=== PATIENT | female | born 1950 | race Caucasian/White ===

== ENCOUNTER 2018-03-28 19:15 | Observation (INO) | payer MEDICARE ==
[~2018-03-28] VITALS: Ht 157.5 cm; Wt 111.6 kg
[2018-03-28 19:28] VITALS: BP 203/67
[2018-03-28] MEDS ORDERED: LISINOPRIL10 MG PO (19:34)
[2018-03-28] MEDS ORDERED: CELEXA20 MG PO (19:35)
[2018-03-28] MEDS ORDERED: MIRAPEX0.5 MG PO (19:37)
[2018-03-28] MEDS ORDERED: SPIRIVA PO (19:37)
[2018-03-28] MEDS ORDERED: VENTOLIN HFA 1818 GM INH (19:37)
[2018-03-28] MEDS ORDERED: ZYRTEC10 M5 PO (19:38)
[2018-03-28] MEDS ORDERED: CARVEDILOL12.5 MG PO (19:39)
[2018-03-28 19:43] LABS: ABSOLUTE BASOPHILS 0.1 thou/uL (0.0-0.2); ABSOLUTE EOSINOPHILS 0.3 thou/uL (0.0-0.7); ABSOLUTE LYMPHOCYTES 1.9 thou/uL (0.8-5.3); ABSOLUTE MONOCYTES 1.2 thou/uL (0.0-1.2); ABSOLUTE NEUTROPHILS 5.2 thou/uL (1.6-8.1); BASOPHILS 0.8 %; EOSINOPHILS 3.3 %; HEMATOCRIT 39.2 % (37.0-47.0); HEMOGLOBIN 13.3 gm/dL (12.0-15.0); LYMPHOCYTES 22.2 %; MCH 29.4 pg (26.0-34.0); MCV 86.4 fL (80.0-100.0); MONOCYTES 13.7 %; MPV 8.1 fl. (7.2-11.1); NUCLEATED RBCS 0 /100WBC; PLATELET COUNT* 214 thou/uL (150-400); RBC 4.53 mil/uL (4.20-5.00); RDW-CV 13.8 % (10.5-14.5); WBC 8.6 thou/uL (4.0-11.0)
[2018-03-28 19:51] LABS: ANION GAP 7 mmol/L (7-16); BUN 16 mg/dL (7-18); CHLORIDE 104 mmol/L (98-107); CO2 28 mmol/L (21-32); CREATININE 0.4 mg/dL (0.6-1.3); GLUCOSE 110 mg/dL (70-99); POTASSIUM 3.6 mmol/L (3.5-5.1); SODIUM 139 mmol/L (136-145)
[2018-03-28 19:57] LABS: ALBUMIN 3.2 g/dL (3.4-5.0); ALKALINE PHOSPHATASE 68 U/L (46-116); SGOT 22 U/L (15-37); SGPT 36 U/L (30-65); TOTAL BILIRUBIN 0.4 mg/dL (<0.1-1.0); TOTAL PROTEIN 6.7 g/dL (6.4-8.2); TROPONIN-I LEVEL <0.06 ng/mL (<0.06)
[2018-03-29 00:51] LABS: URINE BILIRUBIN NEGATIVE (Negative); URINE BLOOD NEGATIVE (Negative); URINE CLARITY CLEAR; URINE COLOR YELLOW; URINE GLUCOSE-RANDOM NEGATIVE (Negative); URINE KETONES NEGATIVE (Negative); URINE LEUKOCYTES-REFLEX NEGATIVE (Negative); URINE PROTEIN 2+ (Negative); URINE UROBILINOGEN 0.2 E.U./dl (0.2-1.0)
[2018-03-29 00:55] LABS: URINE NITRITE-REFLEX POSITIVE (Negative)
[2018-03-29 01:08] LABS: BACTERIA-REFLEX >30 Many /HPF (None Seen); CASTS None Seen /LPF (None Seen); CRYSTALS None Seen /LPF (None Seen); SQUAMOUS 4-10 Moderate /LPF (0-3); URINE RBC 0-2 Rare /HPF (0-2); URINE WBC-REFLEX 6-15 Few /HPF (0-5)
[2018-03-29 01:45] VITALS: BP 145/53
[2018-03-29 02:01] VITALS: BP 153/48
[2018-03-29 08:00] VITALS: BP 152/53
[2018-03-29] MEDS ORDERED: ASPIR 8181 MG PO (10:03)
--- NOTE | 2018-03-29 10:18 | EKG ---
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 : 1950 Requested By: Heather Urbano Order Number: [id number] MD: Vipin Miller Measurements Intervals [place] Rate: 67 P: 29 NC: 181 QRS: -45 QRSD: 114 T: 44 QT: 442 QTc: 467 Interpretive Statements Sinus rhythm Left ventricular hypertrophy with repolarization changes left axis Anterior Q waves, possibly due to LVH No previous ECG available for comparison Electronically Signed On 03-29-2018 10:18:32 CDT by Vipin Miller [email or web address] <ELECTRONICALLY SIGNED> By: Vipin Miller MD, [facility] 03/29/188 51 51 Vipin Miller MD, [facility] /EPI
[2018-03-29 10:58] VITALS: BP 152/53
== END 2018-03-29 11:56 | disposition home or self-care (01) ==
LOC: M.ERS 19:15 → M.2W 03-29 00:02 → M.TBA-ER 03-29 00:02 → M.2W 03-29 00:02
PROVIDERS: Emergency Medicine; ADMIT Internal Medicine
DX: I16.0 Hypertensive urgency (principal); R51 Headache; R82.90 Unspecified abnormal findings in urine; E78.00 Pure hypercholesterolemia, unspecified; E66.9 Obesity, unspecified; R53.81 Other malaise; Z98.890 Other specified postprocedural states; Z90.710 Acquired absence of both cervix and uterus; Z87.891 Personal history of nicotine dependence

== ENCOUNTER 2021-04-10 19:58 | Inpatient (IN) | payer MEDICARE ==
[~2021-04-10] VITALS: Ht 157.5 cm; Wt 121.3 kg
[~2021-04-10 19:58] MED LIST: ASPIR 8181 MG PO; CARVEDILOL12.5 MG PO; CELEXA20 MG PO; LISINOPRIL10 MG PO; MIRAPEX0.5 MG PO; SPIRIVA PO; VENTOLIN HFA 1818 GM INH; ZYRTEC10 M5 PO
[2021-04-10 20:08] VITALS: BP 120/99
[2021-04-10] MEDS ORDERED: NORVASC10 MG PO (20:16)
[2021-04-10] MEDS ORDERED: OMEPRAZOLE40 MG PO (20:17)
[2021-04-10] MEDS ORDERED: CELEXA 20 MG TA20 MG PO (20:18)
[2021-04-10] MEDS ORDERED: NEURONTIN 300M300 M2 PO (20:19)
[2021-04-10] MEDS ORDERED: BUSPIRONE HCL10 MG PO (20:19)
[2021-04-10] MEDS ORDERED: HYDROCHLOROTHIA25 M1 PO (20:20)
[2021-04-10] MEDS ORDERED: PROBIOTIC1 EAC7 PO (20:20)
[2021-04-10] MEDS ORDERED: LORATIDINE 10 M10 M1 PO (20:21)
[2021-04-10] MEDS ORDERED: LIPITOR40 MG PO (20:21)
[2021-04-10] MEDS ORDERED: DULERA 100 MCG/13 GM INH (20:23)
[2021-04-10] MEDS ORDERED: FLONASE 0.05%50 MCG NARES (20:23)
[2021-04-10] MEDS ORDERED: D3-501250 MCG PO (20:24)
[2021-04-10] MEDS ORDERED: ALBUTEROL2.5 MG/31 INH (20:24)
[2021-04-10] MEDS ORDERED: PREMARIN30 GM TOP (20:25)
[2021-04-10] MEDS ORDERED: UNGUENTINE OINT28 GM TOP (20:25)
[2021-04-10 20:56] LABS: ABSOLUTE BASOPHILS 0.1 thou/uL (0.0-0.2); ABSOLUTE EOSINOPHILS 0.2 thou/uL (0.0-0.7); ABSOLUTE LYMPHOCYTES 1.3 thou/uL (0.8-5.3); ABSOLUTE MONOCYTES 1.3 thou/uL (0.0-1.2); ABSOLUTE NEUTROPHILS 9.3 thou/uL (1.6-8.1); BASOPHILS 0.7 %; EOSINOPHILS 1.8 %; HEMATOCRIT 34.5 % (37.0-47.0); HEMOGLOBIN 11.7 gm/dL (12.0-15.0); LYMPHOCYTES 10.8 %; MCH 27.6 pg (26.0-34.0); MCHC 33.9 g/dL (28.0-37.0); MCV 81.3 fL (80.0-100.0); MONOCYTES 10.9 %; MPV 8.2 fl. (7.2-11.1); NUCLEATED RBCS 0 /100WBC; PLATELET COUNT* 261 thou/uL (150-400); POLYS 75.8 %; RBC 4.25 mil/uL (4.20-5.00); RDW-CV 14.3 % (10.5-14.5); WBC 12.3 thou/uL (4.0-11.0)
[2021-04-10 21:06] LABS: CREATININE 0.7 mg/dL (0.6-1.3); POTASSIUM 3.6 mmol/L (3.5-5.1)
[2021-04-10 21:16] LABS: ALBUMIN 2.9 g/dL (3.4-5.0); TOTAL BILIRUBIN 0.4 mg/dL (<0.1-1.0); TOTAL PROTEIN 6.5 g/dL (6.4-8.2)
[2021-04-10 21:38] LABS: URINE BILIRUBIN NEGATIVE (Negative); URINE BLOOD TRACE (Negative); URINE CLARITY HAZY; URINE COLOR YELLOW; URINE GLUCOSE-RANDOM NEGATIVE (Negative); URINE KETONES 1+ (Negative); URINE LEUKOCYTES-REFLEX TRACE (Negative); URINE NITRITE-REFLEX POSITIVE (Negative); URINE PROTEIN 2+ (Negative); URINE SPECIFIC GRAVITY 1.025 (1.005-1.030); URINE UROBILINOGEN 0.2 E.U./dl (0.2-1.0)
[2021-04-10 21:51] LABS: BACTERIA-REFLEX >30 Many /HPF (None Seen); SQUAMOUS 4-10 Moderate /LPF (0-3); URINE RBC None Seen /HPF (0-2); URINE WBC-REFLEX 6-15 Few /HPF (0-5)
[2021-04-10 21:52] LABS: CASTS None Seen /LPF (None Seen); CRYSTALS None Seen /LPF (None Seen)
[2021-04-11] VITALS (7 sets, daily range): BP systolic 121–181; BP diastolic 55–84
[2021-04-11 00:08] LABS: BE 1.4 mmol/L (-2 to +3); PCO2 43.4 mmHg (35.0-45.0); PO2 101.2 mmHg (75.0-100.0); pH 7.403 (7.340-7.450)
--- NOTE | 2021-04-11 10:56 | EKG ---
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[place] : 1950 Requested By: Heather Urbano Order Number: [id number] MD: Zia Zimmerman Measurements Intervals [place] Rate: 79 P: 45 [place]: 165 QRS: -39 QRSD: 170 T: 120 QT: 438 QTc: 503 Interpretive Statements Sinus rhythm Left bundle branch block Baseline wander in lead(s) V6 Compared to ECG 03/28/2018 19:52:48 Left bundle-branch block now present Left ventricular hypertrophy no longer present Q waves no longer present Electronically Signed On 04-11-2021 10:55:47 CDT by Zia Zimmerman [email or web address] <ELECTRONICALLY SIGNED> By: Zia Zimmerman MD, [facility] 04/11/21 1055 40 40 Zia Zimmerman MD, [facility] /EPI
--- NOTE | 2021-04-11 13:16 | 2DMMODE ---
[place] [address] 2 D/M-MODE ECHOCARDIOGRAM Name: LUCERO MORENO Room: [address] IN .R.#: [id number] Admission: 04/10/21 Attend Phys: Sloan Garcia, Discharge: Date of : 50 Date of Service: 04/11/21 1315 Report #: [id number] THIS REPORT FOR: cc: Karen Glynn Michelle RNP Holkins, John M. MD [facility] ~ APPROVED REPORT Study performed: 04/11/2021 10:33:36 EXAM: Comprehensive 2D, Doppler, and color-flow Echocardiogram Patient Location: In-Patient Room #: [facility] Status: routine BSA: 2.16 HR: 83 bpm BP: 149/55 mmHg Rhythm: NSR Other Information Study Quality: Good Indications Congestive Heart Failure COPD 2D Dimensions IVSd: 12.08 (7-11mm) LVOT Diam: 19.88 (18-24mm) LVDd: 61.98 mm PWd: 10.35 (7-11mm) Ascending Ao: 32.35 (22-36mm) LVDs: 33.50 (25-40mm) Aortic Root: 30.73 mm Volumes Left Atrial Volume (Systole) LA ESV Index: 44.90 mL/m2 Aortic Valve AoV Peak Shemar.: 1.63 m/s AO Peak Gr.: 10.57 mmHg LVOT Max P.71 mmHg AO Mean Gr.: 6.26 mmHg LVOT Mean P.12 mmHg LVOT Max V: 1.39 m/s AO V2 VTI: 33.87 cm LVOT Mean V: 0.95 m/s SATISH (VTI): 2.76 cm2 LVOT V1 VTI: 30.17 [place] [address] 2 D/M-MODE [facility]ARDIOGRAM [facility] Room: [address] IN .R.#: [id number] Admission: 04/10/21 Attend Phys: Sloan Garcia, Discharge: Date of : 50 Date of Service: 04/11/21 1315 Report #: [id number] Mitral Valve E/A Ratio: 0.81 MV Decel. Time: 258.99 ms MV E Max Shemar.: 0.82 m/s MV PHT: 75.11 ms MVA (PHT): 2.93 cm2 TDI E/Lateral E': 10.25 E/Medial E': 11.71 Medial E' Shemar.: 0.07 m/s Lateral E' Shemar.: 0.08 m/s Pulmonary Valve PV Peak Shemar.: 1.31 m/s PV Peak Gr.: 6.91 mmHg Tricuspid Valve RAP Estimate: 5.00 mmHg TR Peak Gr.: 37.75 mmHg RVSP: 42.00 mmHg PA Pressure: 42.00 mmHg Left Ventricle The left ventricle is normal size. There is normal LV segmental wall motion. There is normal left ventricular wall thickness. Left ventricular systolic function is normal. The left ventricular ejection fraction is within the normal range. LVEF is 55-60%. Grade I - abnormal relaxation pattern. Right Ventricle The right ventricle is normal size. The right ventricular systolic function is normal. Atria Left atrium is mildly dilated. The right atrium size is normal. Aortic Valve Mild aortic valve sclerosis. No aortic regurgitation is present. There is no aortic valvular stenosis. Mitral Valve Mild mitral annular calcification. Mild mitral regurgitation. No evidence of mitral valve stenosis. Tricuspid Valve The tricuspid valve is normal in structure. [place] [address] 2 D/M-MODE ECHOCARDIOGRAM Name: LUCERO MORENO Room: [address] IN [facility]#: [id number] Admission: 04/10/21 Attend Phys: Sloan Garcia, Discharge: Date of : 50 Date of Service: 04/11/21 1315 Report #: [id number] regurgitation. Moderate pulmonary hypertension. Pulmonic Valve The pulmonary valve is normal in structure. There is no pulmonic valvular regurgitation. Great Vessels The aortic root is normal in size. IVC is normal in size and collapses >50% with inspiration. Pericardium There is no pericardial effusion. <Conclusion> The left ventricle is normal size. There is normal left ventricular wall thickness. Left ventricular systolic function is normal. The left ventricular ejection fraction is within the normal range. LVEF is 55-60%. Grade I - abnormal relaxation pattern. The right ventricle is normal size. Left atrium is mildly dilated. The right atrium size is normal. Mild aortic valve sclerosis. No aortic regurgitation is present. There is no aortic valvular stenosis. Mild mitral annular calcification. Mild mitral regurgitation. No evidence of mitral valve stenosis. The tricuspid valve is normal in structure. Mild tricuspid regurgitation. Moderate pulmonary hypertension. IVC is normal in size and collapses >50% with inspiration. There is no pericardial effusion. There is normal LV segmental wall motion. <ELECTRONICALLY SIGNED> By: Zia Zimmerman MD, FACC 04/11/21 1315 Zia Zimmerman MD, FACC /INF
[2021-04-11 14:41] LABS: CALCIUM 8.8 mg/dL (8.5-10.1); CREATININE 0.9 mg/dL (0.6-1.3); MAGNESIUM 2.1 mg/dL (1.8-2.4); POTASSIUM 3.8 mmol/L (3.5-5.1)
[2021-04-12] VITALS (7 sets, daily range): BP systolic 134–171; BP diastolic 40–72
[2021-04-12 07:03] LABS: HEMATOCRIT 36.5 % (37.0-47.0); HEMOGLOBIN 12.1 gm/dL (12.0-15.0); MCH 27.2 pg (26.0-34.0); MCHC 33.1 g/dL (28.0-37.0); MCV 82.1 fL (80.0-100.0); MPV 8.1 fl. (7.2-11.1); NUCLEATED RBCS 0 /100WBC; PLATELET COUNT* 294 thou/uL (150-400); RBC 4.45 mil/uL (4.20-5.00); RDW-CV 14.4 % (10.5-14.5); WBC 9.1 thou/uL (4.0-11.0)
[2021-04-12 07:13] LABS: CALCIUM 8.8 mg/dL (8.5-10.1); CREATININE 0.9 mg/dL (0.6-1.3); POTASSIUM 4.1 mmol/L (3.5-5.1)
[2021-04-12 07:51] LABS: ABSOLUTE LYMPHOCYTES 1.1 thou/uL (0.8-5.3); ABSOLUTE MONOCYTES 0.2 thou/uL (0.0-1.2); ABSOLUTE NEUTROPHILS 7.8 thou/uL (1.6-8.1); PLATELET ESTIMATE ADEQUATE
[2021-04-12 07:52] LABS: HYPOCHROMASIA Occasional
[2021-04-13 04:15] VITALS: BP 177/61
[2021-04-13] MEDS ORDERED: NAPROXEN500 MG PO (06:31)
[2021-04-13] MEDS ORDERED: TRAMADOL 50 MG50 MG PO (06:32)
[2021-04-13 06:41] LABS: HEMATOCRIT 36.7 % (37.0-47.0); MCH 27.1 pg (26.0-34.0); MCHC 32.8 g/dL (28.0-37.0); MCV 82.6 fL (80.0-100.0); MPV 8.3 fl. (7.2-11.1); RBC 4.44 mil/uL (4.20-5.00); RDW-CV 14.6 % (10.5-14.5); WBC 12.2 thou/uL (4.0-11.0)
[2021-04-13 07:00] LABS: CALCIUM 8.8 mg/dL (8.5-10.1); CREATININE 1.2 mg/dL (0.6-1.3); POTASSIUM 4.2 mmol/L (3.5-5.1)
[2021-04-13 08:00] VITALS: BP 163/72
[2021-04-13 11:29] VITALS: BP 173/52
[2021-04-13 15:43] VITALS: BP 164/81
[2021-04-13 19:35] VITALS: BP 183/59
[2021-04-14 00:33] VITALS: BP 185/58
[2021-04-14 04:27] LABS: CALCIUM 8.3 mg/dL (8.5-10.1); CREATININE 1.1 mg/dL (0.6-1.3); MAGNESIUM 2.6 mg/dL (1.8-2.4); POTASSIUM 4.1 mmol/L (3.5-5.1)
[2021-04-14 04:31] LABS: ABSOLUTE LYMPHOCYTES 0.8 thou/uL (0.8-5.3); ABSOLUTE MONOCYTES 0.6 thou/uL (0.0-1.2); ABSOLUTE NEUTROPHILS 10.2 thou/uL (1.6-8.1); HEMATOCRIT 35.6 % (37.0-47.0); HEMOGLOBIN 11.9 gm/dL (12.0-15.0); MCH 27.5 pg (26.0-34.0); MCHC 33.3 g/dL (28.0-37.0); MCV 82.4 fL (80.0-100.0); MPV 8.1 fl. (7.2-11.1); NUCLEATED RBCS 0 /100WBC; PLATELET COUNT* 304 thou/uL (150-400); RBC 4.32 mil/uL (4.20-5.00); RDW-CV 14.8 % (10.5-14.5); WBC 11.6 thou/uL (4.0-11.0)
[2021-04-14 04:54] VITALS: BP 163/60
[2021-04-14 12:00] VITALS: BP 166/53
[2021-04-14 16:00] VITALS: BP 158/50
[2021-04-14] MEDS ORDERED: DOXYCYCLINE 10100 MG PO (17:48)
[2021-04-14] MEDS ORDERED: MUPIROCIN22 GM TOP (17:58)
[2021-04-14] MEDS ORDERED: CLOTRIMAZOLE 1%15 G1 TOP (17:58)
[2021-04-14] MEDS ORDERED: PREDNISONE 10 M10 MG PO (18:00)
[2021-04-14 20:00] VITALS: BP 114/75
--- NOTE | 2021-04-14 20:33 | CON ---
[address] [address] CONSULTATION Name: LUCERO MORENO Room: [address] IN M.R.#: [id number] Admission: 04/10/21 Attend Phys: Sloan Garcia MD Discharge: Date of : 50 Report #: [id number] THIS REPORT FOR: cc: Karen Glynn Michelle RNP Pervez, Adeel MD ~ DOC #: [id number] Dickson Vieira MD DATE OF CONSULTATION: 04/11/2021 REQUESTING PHYSICIAN: Dr. Sloan Garcia. INDICATION FOR CONSULTATION: COPD exacerbation. HISTORY OF PRESENT ILLNESS: A 71-year-old female with past medical history includes a history of COPD as well as obstructive sleep apnea. She is on a CPAP at night, is now admitted with acute increasing shortness of breath over the last several days' duration. She also has been coughing. There is not much sputum. There is no chest pain. She does not describe upper respiratory complaints. Has not had fever or chills. Has some swelling of lower extremities, which has not changed significantly compared with her baseline. She does have some varicose veins. She has disturbed sleep at night as well as sleepiness during the day, these are at baseline. The patient was in acute respiratory distress on admission, was on a BiPAP, was taken off BiPAP this morning and is currently on 4.5 liters of oxygen. She also reports a significant rash and redness in her genital area. REVIEW OF SYSTEMS: The patient's review of systems for 12 points is negative except as mentioned above and also with the exception that she has had some longstanding back pain. PAST MEDICAL HISTORY: COPD, obstructive sleep apnea on a CPAP at home, hypertension, hyperlipidemia, hysterectomy, carpal tunnel surgery, right knee surgery and bilateral shoulder replacement. The patient just had an echocardiogram, shows a left ventricular ejection fraction of 55-60% with a pulmonary artery systolic of 42. Gastroesophageal reflux disease. SOCIAL HISTORY: Extensive history of smoking in the past, has now discontinued. No known history of heavy alcohol use or illegal drug use. CURRENT MEDICATIONS: List in [employer], reviewed. HOME MEDICATIONS: List also in [employer], reviewed. ALLERGIES: [place] [address] CONSULTATION Name: LUCERO MORENO Room: [address]#: [id number] Admission: 04/10/21 Attend Phys: Sloan Garcia MD Discharge: Date of : 50 Report #: [id number] FAMILY HISTORY: No pertinent family history. PHYSICAL EXAMINATION: GENERAL: She is alert, awake and oriented, does appear to have shortness of breath at rest. VITAL SIGNS: Has a pulse of 71 and a blood pressure of 160/59. She is on 4.5 liters of oxygen, O2 saturation, however, is 95%. She is afebrile with a temperature of 36.4 this morning. Body mass index is 49. Respiratory rate was elevated around 22-24 at the time of my evaluation. HEENT: Head is normocephalic and atraumatic. Pupils are equal and reactive. There is no throat erythema. Airway is Mallampati 4. There is no thrush in her throat. NECK: Does not show raised JVP asymmetry, mass or lymph nodes. CHEST: Symmetrical expansion on inspection and palpation. On auscultation, breath sounds are bilaterally equal, but decreased. Expirations are prolonged. There are expiratory wheezes bilaterally. HEART: Regular. There is no murmur. ABDOMEN: Soft and nontender. EXTREMITIES: Lower extremities show 1+ edema. There is no calf tenderness. Skin, however, is dry and intact. There are significant varicose veins noted, most of these are small spider veins. NEUROLOGIC: Moves all extremities bilaterally equally and spontaneously with no focal deficit identified. LABORATORY DATA: The patient's lab work in [facility], reviewed. Normal creatinine of 0.7 noted. A D-dimer was elevated to 1.5. COVID-19 antigen was negative. PCO2 on the arterial blood gases 43 with a normal pH. ASSESSMENT AND PLAN: 1. Acute hypoxemic respiratory failure. We will continue with BiPAP while asleep. Continue to titrate oxygen and switch BiPAP over to AVAPS mode. 2. Chronic obstructive pulmonary disease exacerbation. Agree with Solu-Medrol as currently prescribed. Switch around her nebulized bronchodilators and order DuoNeb q.i.d. We will also add Singulair and adjust according to response. 3. Pulmonary infiltrates. We got limited images with CT last night. I do feel that there are at least some patchy infiltrates at bilateral lung bases. She is on ceftriaxone, I would continue the same. Considered adding Zithromax; however, the patient is getting a dose of fluconazole for dental infection and there is no definite evidence of atypical infection; therefore, I decided to hold off today. We will reassess tomorrow and then if she fails to improve, consider adding either Zithromax or doxycycline. Ordered a nasal swab for MRSA as well as sputum cultures, urine for legionella antigen and pneumococcal antigen. [address] [place] [address] CONSULTATION Name: LUCERO MORENO Room: [address]#: [id number] Admission: 04/10/21 Attend Phys: Sloan Garcia MD Discharge: Date of : 50 Report #: [id number] 4. Obstructive sleep apnea on CPAP long-term. Ordered AVAPS as above. Needs weight loss. 5. Varicose vein/evaluation for thromboembolic phenomena. No obvious PE on the CTA chest; however, it is a limited study. I would like to do venous Dopplers. 6. Mild fluid overload. Repeat labs now. If no change since yesterday, then I intend to give her Lasix. 7. Gastroesophageal reflux disease. She is on omeprazole at home. Agree with PPI. 8. C. difficile prophylaxis. We will order Lactinex. 9. Deep venous thrombosis prophylaxis, Lovenox. 10. Genital yeast infection, was evaluated by Dr. Gilmore and is due for a dose of fluconazole. Thanks for this consultation. MD MARIELA Shafer/ZIGGY <ELECTRONICALLY SIGNED> By: Dickson Vieira MD 04/14/212032 1322 2149Anilesh Vieira MD /nt
[2021-04-15] VITALS: BP 181/54
[2021-04-15 04:57] VITALS: BP 191/64
[2021-04-15 04:59] LABS: ABSOLUTE LYMPHOCYTES 0.9 thou/uL (0.8-5.3); ABSOLUTE MONOCYTES 1.1 thou/uL (0.0-1.2); ABSOLUTE NEUTROPHILS 7.5 thou/uL (1.6-8.1); HEMATOCRIT 35.3 % (37.0-47.0); HEMOGLOBIN 11.9 gm/dL (12.0-15.0); LYMPHOCYTES 9.6 %; MCH 27.3 pg (26.0-34.0); MCHC 33.6 g/dL (28.0-37.0); MCV 81.2 fL (80.0-100.0); MONOCYTES 11.6 %; MPV 7.8 fl. (7.2-11.1); NUCLEATED RBCS 0 /100WBC; PLATELET COUNT* 265 thou/uL (150-400); POLYS 78.8 %; RBC 4.34 mil/uL (4.20-5.00); RDW-CV 14.2 % (10.5-14.5); WBC 9.6 thou/uL (4.0-11.0)
[2021-04-15 05:06] LABS: CALCIUM 8.4 mg/dL (8.5-10.1); CREATININE 0.8 mg/dL (0.6-1.3); MAGNESIUM 2.3 mg/dL (1.8-2.4); POTASSIUM 4.3 mmol/L (3.5-5.1)
[2021-04-15 08:00] VITALS: BP 206/91
[2021-04-15 08:40] VITALS: BP 191/64
[2021-04-15 10:40] VITALS: BP 178/49
[2021-04-15 11:54] VITALS: BP 175/50
== END 2021-04-15 13:55 | disposition home health service (06) | DRG 871 ==
LOC: M.ERS 19:58 → M.TBA-ER 23:18 → M.2W 23:18
PROVIDERS: Emergency Medicine; Internal Medicine; Internal Medicine Critical Care Medicine; ADMIT Internal Medicine; ATTEND Internal Medicine
PROC: 5A09357 Assistance with Respiratory Ventilation, Less than 24 Consecutive Hours, Continuous Positive Airway Pressure (ICD-10-PCS; principal; 2021-04-11)
PROC: 5A09357 Assistance with Respiratory Ventilation, Less than 24 Consecutive Hours, Continuous Positive Airway Pressure (ICD-10-PCS; 2021-04-12)
DX: A41.9 Sepsis, unspecified organism (principal); J96.21 Acute and chronic respiratory failure with hypoxia; I50.43 Acute on chronic combined systolic (congestive) and diastolic (congestive) heart failure; N30.00 Acute cystitis without hematuria; J44.1 Chronic obstructive pulmonary disease with (acute) exacerbation; B37.49 Other urogenital candidiasis; Z68.42 Body mass index [BMI] 45.0-49.9, adult; E66.2 Morbid (severe) obesity with alveolar hypoventilation; L03.315 Cellulitis of perineum; J44.0 Chronic obstructive pulmonary disease with (acute) lower respiratory infection; E78.5 Hyperlipidemia, unspecified; E78.00 Pure hypercholesterolemia, unspecified; K21.9 Gastro-esophageal reflux disease without esophagitis; E87.70 Fluid overload, unspecified; I11.0 Hypertensive heart disease with heart failure; I83.90 Asymptomatic varicose veins of unspecified lower extremity; J20.9 Acute bronchitis, unspecified; F32.9 Major depressive disorder, single episode, unspecified; Z20.822 Contact with and (suspected) exposure to COVID-19; Z96.612 Presence of left artificial shoulder joint; Z96.611 Presence of right artificial shoulder joint; Z90.710 Acquired absence of both cervix and uterus; Z79.899 Other long term (current) drug therapy; Z99.81 Dependence on supplemental oxygen; Z87.891 Personal history of nicotine dependence

== ENCOUNTER 2021-04-24 21:36 | Inpatient (IN) | payer MEDICARE ==
[~2021-04-24] VITALS: Ht 157.5 cm; Wt 121.3 kg
[~2021-04-24 21:36] MED LIST changes: +ALBUTEROL2.5 MG/31 INH; +BUSPIRONE HCL10 MG PO; +CELEXA 20 MG TA20 MG PO; +CLOTRIMAZOLE 1%15 G1 TOP; +D3-501250 MCG PO; +DOXYCYCLINE 10100 MG PO; +DULERA 100 MCG/13 GM INH; +FLONASE 0.05%50 MCG NARES; +HYDROCHLOROTHIA25 M1 PO; +LIPITOR40 MG PO; +LORATIDINE 10 M10 M1 PO; +MUPIROCIN22 GM TOP; +NAPROXEN500 MG PO; +NEURONTIN 300M300 M2 PO; +NORVASC10 MG PO; +OMEPRAZOLE40 MG PO; +PREDNISONE 10 M10 MG PO; +PREMARIN30 GM TOP; +PROBIOTIC1 EAC7 PO; +TRAMADOL 50 MG50 MG PO; +UNGUENTINE OINT28 GM TOP
[2021-04-24 21:46] VITALS: BP 226/73
[2021-04-24 22:40] LABS: ABSOLUTE BASOPHILS 0.1 thou/uL (0.0-0.2); ABSOLUTE EOSINOPHILS 0.2 thou/uL (0.0-0.7); ABSOLUTE LYMPHOCYTES 2.2 thou/uL (0.8-5.3); ABSOLUTE MONOCYTES 1.5 thou/uL (0.0-1.2); BASOPHILS 0.7 %; EOSINOPHILS 1.8 %; HEMATOCRIT 35.8 % (37.0-47.0); LYMPHOCYTES 18.7 %; MCH 27.7 pg (26.0-34.0); MCHC 33.5 g/dL (28.0-37.0); MCV 82.6 fL (80.0-100.0); MPV 8.3 fl. (7.2-11.1); NUCLEATED RBCS 0 /100WBC; PLATELET COUNT* 206 thou/uL (150-400); POLYS 66.8 %; RBC 4.33 mil/uL (4.20-5.00); RDW-CV 14.9 % (10.5-14.5)
[2021-04-24 22:46] LABS: CALCIUM 8.1 mg/dL (8.5-10.1); CREATININE 0.8 mg/dL (0.6-1.3); POTASSIUM 3.8 mmol/L (3.5-5.1)
[2021-04-24 22:57] LABS: ALBUMIN 2.8 g/dL (3.4-5.0); MAGNESIUM 1.5 mg/dL (1.8-2.4); TOTAL BILIRUBIN 0.3 mg/dL (<0.1-1.0); TOTAL PROTEIN 5.6 g/dL (6.4-8.2)
[2021-04-24 23:04] LABS: BE 4.1 mmol/L (-2 to +3); PO2 84.2 mmHg (75.0-100.0); pH 7.391 (7.340-7.450)
[2021-04-24 23:05] LABS: PCO2 50.6 mmHg (35.0-45.0)
[2021-04-24 23:33] LABS: INR 0.9
[2021-04-25] VITALS (7 sets, daily range): BP systolic 172–212; BP diastolic 54–93
[2021-04-25 00:27] LABS: URINE BILIRUBIN NEGATIVE (Negative); URINE BLOOD NEGATIVE (Negative); URINE CLARITY CLEAR; URINE COLOR YELLOW; URINE GLUCOSE-RANDOM NEGATIVE (Negative); URINE KETONES NEGATIVE (Negative); URINE LEUKOCYTES-REFLEX NEGATIVE (Negative); URINE NITRITE-REFLEX NEGATIVE (Negative); URINE PROTEIN 2+ (Negative); URINE UROBILINOGEN 0.2 E.U./dl (0.2-1.0)
[2021-04-25 00:34] LABS: BACTERIA-REFLEX 1-9 Few /HPF (None Seen); CASTS None Seen /LPF (None Seen); MUCUS 0-3 Light strn/LPF (None Seen); SQUAMOUS 0-3 Few /LPF (0-3); URINE RBC None Seen /HPF (0-2); URINE WBC-REFLEX None Seen /HPF (0-5)
[2021-04-25 00:35] LABS: CRYSTALS None Seen /LPF (None Seen)
[2021-04-25 09:23] LABS: MAGNESIUM 1.7 mg/dL (1.8-2.4); POTASSIUM 3.7 mmol/L (3.5-5.1)
--- NOTE | 2021-04-25 10:30 | NUR ---
CM ASSESSMENT: PT A&O, AND INDEPENDENT WITH ADL'S. PT RESIDES AT HOME ALONE. PT USES A WALKER FOR MOBILITY, BUT ALSO OWNS A CANE. PT USES A CPAP A NOC. PT HAS PAST HX OF HH, BUT COULD NOT RECALL THE NAME. PT INFORMS THAT SHE IS OPEN TO HH AT D/C AND INFORMS THAT SHE HAS NO HH PREFERENCE. PT [facility]EPTS [facility] IF NEEDED AT D/C. CM TO FAX [facility] REFERRAL IN CASE PT IS READY TO D/C OVER THE WEEKEND. CM WILL REMAIN AVAILABLE TO ASSIST AND FOLLOW NEEDED. [facility] PHONE: [phone] FAX: [phone]
--- NOTE | 2021-04-25 11:14 | EKG ---
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 : 1950 Requested By: Vonda Allison Order Number: [id number] MD: Vipin Miller Measurements Intervals [place] Rate: 72 P: 49 IA: 156 QRS: -36 QRSD: 163 T: 113 QT: 445 QTc: 488 Interpretive Statements Sinus rhythm with short pr interval Left bundle branch block Baseline wander in lead(s) III,V1,V2 Compared to ECG 04/10/2021 20:41:47 No significant changes Electronically Signed On 04-25-2021 11:13:57 CDT by Vipin Miller [email or web address] <ELECTRONICALLY SIGNED> By: Vipin Miller MD, FAC 04/25/21 1113 2158 Vipin Miller MD, [facility] /EPI
[2021-04-26] VITALS: BP 175/51
[2021-04-26 04:28] VITALS: BP 175/44
[2021-04-26 06:42] LABS: ANION GAP 1 mmol/L (7-16); BUN 19 mg/dL (7-18); CALCIUM 7.9 mg/dL (8.5-10.1); CHLORIDE 101 mmol/L (98-107); CHOLESTEROL 191 mg/dL (<200); CO2 37 mmol/L (21-32); CREATININE 0.7 mg/dL (0.6-1.3); GLUCOSE 149 mg/dL (70-99); HDL CHOLESTEROL 43 mg/dL (>40); LDL CHOLESTEROL 104 mg/dL (<100); SODIUM 139 mmol/L (136-145); TC:HDL 4.4 Ratio (Not establshd); TRIGLYCERIDE 223 mg/dL (<150); VLDL 45 mg/dL (<40)
[2021-04-26 06:44] LABS: SERUM ASSESSMENT CLEAR
[2021-04-26 08:15] VITALS: BP 136/45
--- NOTE | 2021-04-26 10:23 | CON ---
[address] [address] CONSULTATION Name: LUCERO MORENO Room: [address] IN M.R.#: [id number] Admission: 04/25/21 Attend Phys: Sloan Garcia MD Discharge: Date of : 50 Report #: [id number] THIS REPORT FOR: cc: Karen Glynn Michelle RNP Blick, David R. MD [facility] ~ DATE OF CONSULTATION: 04/25/2021 CARDIOLOGY CONSULTATION HISTORY OF PRESENT ILLNESS: The patient is a 71-year-old single white female who I was asked to see in the hospital after she complained to being short of breath. The patient has had several hospitalizations here at [facility] in the past. She was just admitted here 2 weeks ago with shortness of breath secondary to COPD. She is also morbidly obese. She was just sent home a week ago. Since her discharge, she has had no increased shortness of breath, fever. She does have a chronic cough. However, she has had worsening swelling of her feet. She denies any leg pain. She denies a history of chest tightness. She notes occasional skipped heartbeat, but no syncope. She does go for walks. PAST MEDICAL HISTORY: She had hysterectomy, bilateral knee replacement, shoulder surgery, cataract extraction. She has a history of hypertension; glucose intolerance; sleep apnea, uses CPAP. MEDICATIONS: On admission consist of amlodipine, omeprazole, buspirone, Neurontin, hydrochlorothiazide, Lipitor, Flonase nasal spray, albuterol inhaler, lisinopril, Mirapex, carvedilol. ALLERGIES: She has no known drug allergies. FAMILY HISTORY: Negative for heart disease. SOCIAL HISTORY: She is , lives by herself in [place], [place]. Smokes two and a half pack of cigarettes a day for 30 years, quit in 1991. Rarely drinks alcohol. REVIEW OF SYSTEMS: She is overweight being 5 feet 2, 260 pounds. No history of stroke, liver disease, kidney disease, cancer, psychiatric illness, chronic skin condition. She does wear glasses. PHYSICAL EXAMINATION: GENERAL: Revealed obese elderly female lying in bed. She appeared in no distress. VITAL SIGNS: Blood pressure is 170/70, pulse is 70, she is afebrile. HEENT: She was anicteric. Conjunctivae pink[place] [address] CONSULTATION Name: LUCERO MORENO Room: [address]#: [id number] Admission: 04/25/21 Attend Phys: Sloan Garcia MD Discharge: Date of : 50 Report #: [id number] NECK: Veins difficult to assess due to obesity. Right carotid bruit is heard. CHEST: Revealed decreased breath sounds at bases. HEART: Regular rate and rhythm, no significant murmur. ABDOMEN: Obese. EXTREMITIES: Had pitting edema up to mid tibial area. Dorsalis pedis pulse cannot be palpated. SKIN: Cool and dry. NEUROLOGIC: Nonfocal. IMAGING: Her ECG showed sinus rhythm, short [place] interval, leftward axis and a left bundle branch block. The patient actually had an echocardiogram done last month that showed an ejection fraction of 60%, left atrial enlargement, aortic sclerosis, mild mitral regurgitation, mild tricuspid insufficiency. The patient had a portable chest x-ray in the emergency room last night that showed elevated right hemidiaphragm, cardiomegaly, no pulmonary edema. She had venous duplex scan of her legs done last month while she was here that showed no DVT. She had a CT scan of the chest using a PE protocol last month that showed normal heart size. Elevated right hemidiaphragm. LABORATORY DATA: Sodium 141, creatinine 0.8. Liver functions normal. Albumin 2.8. Troponin 0.06. BNP 613. White blood cell count 12.0, hematocrit 35.8. Her COVID antigen stat test was negative. Urinalysis was 2+ protein. IMPRESSION AND RECOMMENDATIONS: 1. Chronic obstructive pulmonary disease. 2. Previous tobacco abuse. Fortunately, the patient no longer smokes. 3. Cor pulmonale with lower extremity edema. Recommend Lasix. 4. Hypertension. The patient has been on YOEL inhibitor, calcium matteo, beta matteo. I would discontinue Norvasc since it tends to lead to lower extremity edema. 5. Glucose intolerance. 6. Sleep apnea. The patient is on CPAP. <ELECTRONICALLY SIGNED> By: Tr Garner MD, FACC 04/26/21 1023 1142 1325Dafelicity Miller MD, FACC /nt
[2021-04-26 11:15] VITALS: BP 193/65
[2021-04-26 16:51] VITALS: BP 179/51
--- NOTE | 2021-04-26 17:12 | NUR ---
DURING THE WALK, PT'S SAT DROPPED DOWN TO 81 ON RA. WHEN I PUT THE PT ON 2L, THE PT'S SAT WENT TO 86. WHEN I PUT HER ON 4L SHE WAS ABLE TO MAINTAIN A SAT OF 90. PT WILL NEED 4L OF OXYGEN WHEN BEING DISCHARGED FROM HOSPITAL WHILE AMBULATING. AT REST, PT CAN HAVE 2L NC ON.
[2021-04-26 20:00] VITALS: BP 189/74
[2021-04-27] VITALS: BP 214/70
[2021-04-27 04:00] VITALS: BP 183/52
--- NOTE | 2021-04-27 06:27 | NUR ---
ASSESSMENT: PT REMAAIN ALERT AND ORIENT TIMES FOUR. PT WAS DROWSY OFF AND ON DURING THE NIGHT. EASY TO AROUSE. BP ELEVATED, PRN HYDRALAZINE GIVEN WITH MINIMAL RESULTS. IT WAS SUGGESTED BY THIS RN THAT PT GET IN RECYLINER TO SLEEP R/T RESTLESSNESS IN THE BED IN SPITE OF BEING DROWSY. PT'S DOSE OF BUSPAR WAS HELD THIS AM R/T PT ACTING LETHARGIC AT TIMES. PT IS DIURESSING WELL, NO BM THIS SHIFT. SLOW PROGRESS TOWARDS DC GOALS., WILL CONTINUE TO MONITOR.
[2021-04-27 08:00] VITALS: BP 136/74
[2021-04-27 12:18] VITALS: BP 175/79
[2021-04-27] MEDS ORDERED: FUROSEMIDE 40 M40 MG PO (14:33)
--- NOTE | 2021-04-27 16:20 | NUR ---
FAXED PACKET TO [facility]. JACK NOTIFIED [facility] IN [facility]. LEFT MESSAGE FOR [facility] FOR THEM TO CALL ME REGARDING NEW HH.
[2021-04-27 16:45] VITALS: BP 175/79
== END 2021-04-27 18:04 | disposition home health service (06) | DRG 291 ==
LOC: M.ERS 21:36 → M.2W 04-25 02:15 → M.TBA-ER 04-25 02:15 → M.2W 04-25 03:17
PROVIDERS: Internal Medicine Cardiovascular Disease; Personal Emergency Response Attendant; ADMIT Internal Medicine; ATTEND Internal Medicine
DX: I11.0 Hypertensive heart disease with heart failure (principal); J96.01 Acute respiratory failure with hypoxia; J44.1 Chronic obstructive pulmonary disease with (acute) exacerbation; Z68.42 Body mass index [BMI] 45.0-49.9, adult; I50.33 Acute on chronic diastolic (congestive) heart failure; I16.0 Hypertensive urgency; E78.00 Pure hypercholesterolemia, unspecified; I27.81 Cor pulmonale (chronic); G47.30 Sleep apnea, unspecified; E83.42 Hypomagnesemia; F32.9 Major depressive disorder, single episode, unspecified; I27.20 Pulmonary hypertension, unspecified; E11.40 Type 2 diabetes mellitus with diabetic neuropathy, unspecified; E66.9 Obesity, unspecified; Z96.653 Presence of artificial knee joint, bilateral; Z96.612 Presence of left artificial shoulder joint; Z96.611 Presence of right artificial shoulder joint; Z20.822 Contact with and (suspected) exposure to COVID-19; Z90.710 Acquired absence of both cervix and uterus; Z79.899 Other long term (current) drug therapy; Z98.49 Cataract extraction status, unspecified eye; Z99.81 Dependence on supplemental oxygen; Z87.891 Personal history of nicotine dependence

== ENCOUNTER 2021-05-12 05:47 | Emergency (ER) | payer MEDICARE ==
[~2021-05-12] VITALS: Ht 165.1 cm; Wt 131.0 kg
--- NOTE | ~2021-05-12 | EMS ---
[facility] [address] [place] [address] EMS Patient Care Report Name: LUCERO MORENO [id number] Admission: 05/12/21 Attend Phys: Discharge: 05/12/21 Date of : 50 Report #: [id number] THIS REPORT FOR: //name// Report Transmitted: 05/14/2021 11:47 EMS Care Summary [facility] Incident 21-0721 @ 05/12/2021 05:08 Incident Location [address] [place] [address] Patient LUCERO MORENO Female, 71 Years 1950 Patient Address [address] [place] [address] Patient History Congestive Heart Failure (CHF),Chronic Obstructive Pulmonary Disease (COPD),Cardiac Condition - Other, Patient Allergies No known allergies, Chief Complaint Shortness of Breath Disposition Transported Lights/[place] Dispatch Reason Breathing Problem Transported To [facility] Narrative Med 1 and Engine 1 were dispatched for a [age] year-old female c/o difficulty breathing. Upon arrival, patient was sitting at her kitchen table with at home Oxygen on at 3 lp NC. Patient was sitting tripod attempting to get air. Initial Pulse Oximetry reading was 64%. Patient was placed on Oxygen [address] [address] EMS Patient Care Report Name: LUCERO MORENO Room: [facility]#: [id number] Admission: 05/12/21 Attend Phys: Discharge: 05/12/21 Date of : 50 Report #: [id number] via NRB at 15 lpm and assisted to the stretcher. She was secured to the stretcher via seatbelts and moved to the ambulance without incident. In the ambulance, patients vitals were obtained and patient was placed on the monitor worker. IV access was obtained in the patients left AC with a 20 GA IV catheter saline lock. Fast patches were applied and due to patients agitation 1 mg Midazolam was given and CPAP was attempted. Patient became pulseless and PEA was shown on the monitor. Manual CPR was initiated then the patient was placed on the LUCIA device to continue CPR. ACLS protocols were initiated. Hospital report was given via radio with no questions of orders requested or received. Med 1 arrived at the hospital. Patient was moved into the ER Trauma 1 room and patient care was transferred to ER staff. ER physician worked the code for approximately twenty minutes and called it. Med 1 returned back into service. [id number] KShook Initial Vitals @05:31P: 77,SpO2: 79, @05:31P: 48,SpO2: 65, @05:45P: 0,R: 0,GCS: 3,Revised Trauma: 1, @05:18R: 22,BP: 160/92,GCS: 15,Glucose: 111,SpO2: 68,Revised Trauma: 12, Assessments @05:36MENTAL:Event Oriented,Person Oriented,Place Oriented,Time Oriented,SKIN:HEENT:Head/Face: No Abnormalities,LUNG SOUNDS:ABDOMEN:PELVIS//GI:EXTREMITIES:Left Arm: No Abnormalities,Right Arm: No Abnormalities,Left Leg: No Abnormalities,Right Leg: No Abnormalities,PULSE:NEURO:No Abnormalities,@06:22MENTAL:Confused,Unresponsive,SKIN:Diaphoresis,Pale,HEENT:Nec k/Airway: Other,LUNG SOUNDS:ABDOMEN:PELVIS//GI:EXTREMITIES:PULSE:NEURO: Impression Shortness of breath Procedures @05:28Saline Lock 600cc (20 ga) Site: Antecubital-LeftResponse: UnchangedSucceeded@05:29CPAP FlowRate: 10 Response: UnchangedFailed@05:40Epinephrine 1:10 - 1 Milligrams (mg) - Intravenous (IV)Response: Unchanged@05:36Epinephrine 1:10 - 1 Milligrams (mg) - Intravenous (IV)Response: Unchanged@05:41Midazolam - 2 Milligrams (mg) - Intravenous (IV)Response: Unchanged@05:48Epinephrine 1:10 - 1 Milligrams (mg) [place] [address] EMS Patient Care Report Name: LUCERO MORENO Room: [facility] Chou#: [id number] Admission: 05/12/21 Attend Phys: Discharge: 05/12/21 Date of : 50 Report #: [id number] (IV)Response: Unchanged Timeline 05:08,Call Received 05:08,Dispatched 05:10,En Route 05:12,On Scene 05:13,At Patient 05:18,BP: 160/92 M,PULSE: ,RR: 22 R,SPO2: 68 Ox,ETCO2: ,B,PAIN: ,GCS: 15, 05:28,Saline Lock 600cc 20 ga Site: Antecubital-Left,Response: UnchangedSucceeded, 05:29,CPAP FlowRate: 10 Response: UnchangedFailed, 05:31,BP: / M,PULSE: 77,RR: R,SPO2: 79 Ox,ETCO2: ,BG: ,PAIN: ,GCS: , 05:31,BP: / M,PULSE: 48,RR: R,SPO2: 65 Ox,ETCO2: ,BG: ,PAIN: ,GCS: , 05:33,Depart Scene 05:36,Epinephrine 1:10 - 1 Milligrams (mg) - Intravenous (IV),Response: Unchanged 05:40,Epinephrine 1:10 - 1 Milligrams (mg) - Intravenous (IV),Response: Unchanged 05:41,Midazolam - 2 Milligrams (mg) - Intravenous (IV),Response: Unchanged 05:45,BP: 30/ M,PULSE: 0,RR: 0 R,SPO2: Ox,ETCO2: ,BG: ,PAIN: ,GCS: 3, 05:48,Epinephrine 1:10 - 1 Milligrams (mg) - Intravenous (IV),Response: Unchanged 05:50,At Destination 06:27,Call Closed 06:27,In District Disclaimer v1.1 Copyright 2020 [employer] This EMS Care Summary contains data elements from the applicable legal record (which may be displayed differently). It is designed to provide pertinent information for the following purposes: continuity of care, clinical quality, and state data reporting. The complete legal record is available to ED staff and administrators of the receiving hospital in [employer] Patient Tracker. All data is provided "as is."
[~2021-05-12 05:47] MED LIST changes: +FUROSEMIDE 40 M40 MG PO
[2021-05-12 06:48] LABS: HEMATOCRIT 33.8 % (37.0-47.0); HEMOGLOBIN 10.6 gm/dL (12.0-15.0); MCH 27.5 pg (26.0-34.0); MCHC 31.3 g/dL (28.0-37.0); MCV 88.1 fL (80.0-100.0); MPV 9.1 fl. (7.2-11.1); NUCLEATED RBCS 0 /100WBC; PLATELET COUNT* 313 thou/uL (150-400); RBC 3.83 mil/uL (4.20-5.00); RDW-CV 15.3 % (10.5-14.5); WBC 16.9 thou/uL (4.0-11.0)
[2021-05-12 06:50] VITALS: BP 00/00
[2021-05-12 06:57] LABS: PROTIME 10.8 Seconds (9.20-11.50)
[2021-05-12 07:00] LABS: CALCIUM 8.5 mg/dL (8.5-10.1); CREATININE 1.2 mg/dL (0.6-1.3); POTASSIUM 3.9 mmol/L (3.5-5.1)
[2021-05-12 07:04] LABS: ALBUMIN 2.5 g/dL (3.4-5.0); TOTAL BILIRUBIN 0.4 mg/dL (<0.1-1.0); TOTAL PROTEIN 5.9 g/dL (6.4-8.2)
[2021-05-12 07:54] LABS: ABSOLUTE LYMPHOCYTES 5.4 thou/uL (0.8-5.3); ABSOLUTE MONOCYTES 0.5 thou/uL (0.0-1.2); ANISOCYTOSIS 1+; PLATELET ESTIMATE ADEQUATE; POIKILOCYTOSIS 1+
== END 2021-05-12 06:50 ==
LOC: M.ERS 05:47
PROVIDERS: Emergency Medicine
DX: I46.9 Cardiac arrest, cause unspecified (principal); Z20.822 Contact with and (suspected) exposure to COVID-19; I10 Essential (primary) hypertension; E78.00 Pure hypercholesterolemia, unspecified; J44.9 Chronic obstructive pulmonary disease, unspecified; Z87.891 Personal history of nicotine dependence; Z90.710 Acquired absence of both cervix and uterus